=== PATIENT | female | born 1955 | race Native Hawaiian/Other Pacific Islander ===

== ENCOUNTER 2021-08-29 22:23 | Emergency (ER) | payer OTHER ==
[~2021-08-29] VITALS: Ht 157.5 cm; Wt 70.0 kg
[2021-08-29 23:05] LABS: PLATELET COUNT 282 K/uL (152-353)
[2021-08-29 23:22] LABS: POTASSIUM 4.3 mmol/L (3.6-5.2)
[2021-08-30 00:04] VITALS: BP 139/50; TEMP 98.4
[2021-08-30] MEDS ORDERED: ASPIRIN 81 LOW81 MG PO (01:16)
[2021-08-30] MEDS ORDERED: BACLOFEN10 MG PO (01:17)
[2021-08-30] MEDS ORDERED: FAMOTIDINE20 MG PO (01:17)
[2021-08-30] MEDS ORDERED: FLUOXETINE40 MG PO (01:18)
[2021-08-30] MEDS ORDERED: DICLOFENAC SODIUM1 % TD (01:19)
[2021-08-30] MEDS ORDERED: DOCU100C10 PO (01:19)
[2021-08-30] MEDS ORDERED: FLONASE AL50 MCG/ACT NAS (01:22)
[2021-08-30] MEDS ORDERED: GABA300C2 PO (01:23)
[2021-08-30] MEDS ORDERED: SITA50TA2 PO (01:23)
[2021-08-30] MEDS ORDERED: GNP MELATONIN MA5 MG PO (01:24)
[2021-08-30] MEDS ORDERED: METFORMIN HCL500 M1 PO (01:25)
[2021-08-30] MEDS ORDERED: MIDODRINE5 MG PO (01:26)
[2021-08-30] MEDS ORDERED: MULTIVITAMIN PO (01:53)
[2021-08-30] MEDS ORDERED: MIRALAX17 GM PO (01:56)
[2021-08-30] MEDS ORDERED: TYLENOL325 MG PO (01:56)
[2021-08-30] MEDS ORDERED: CLON0.5T36 PO (01:58)
== END 2021-08-30 00:04 | disposition still patient (30) ==
LOC: ED 22:23
PROVIDERS: Hospitalist
DX: F25.8 Other schizoaffective disorders (principal); F03.91 Unspecified dementia, unspecified severity, with behavioral disturbance; Z11.52 Encounter for screening for COVID-19; Z04.6 Encounter for general psychiatric examination, requested by authority
CPT/HCPCS: 36415; 80053; 85027; 87635; 93005; 96372; 99283; J1940; U0003